=== PATIENT | female | born 1950 | race Caucasian/White ===

== ENCOUNTER → 2018-01-11 08:55 | Outpatient (CLI) | payer MEDICARE, OTHER, SELFPAY ==
--- NOTE | 2018-01-11 09:01 | BI_ITS ---
MAMMOGRAPHY - BILATERAL SCREENING REASON FOR EXAM: Female, 67 years old. Routine annual screening examination. PERTINENT HISTORY: Non-contributory. TECHNIQUE: Digital bilateral breast anjali (3D mammographic acquisition) in the CC and MLO projections. 2-D mediolateral oblique (MLO) and craniocaudad (CC) views of both breasts were obtained. CAD: Full Field Digital Mammography with Computer Added Detection was performed. COMPARISON: Comparison is made with prior study dated January 10, 2017 and December 17, 2015. FINDINGS: Breast Composition: The breasts are heterogeneously dense, which may obscure small masses. There are no dominant masses or suspicious calcifications. Stable benign-appearing bilateral axillary lymph nodes. No other significant abnormalities are identified. There has been no significant change since the prior study. BI/SCREENING MAMM (CAD), BILAT IMPRESSION: Stable bilateral screening mammogram. Yearly follow-up mammogram recommended. (A) ASSESSMENT CATEGORY: BIRADS Category 2: Benign. A letter regarding these results will be sent to the patient by the facility within 30 days. Approximately 10% of breast cancers are not detected by mammography. A normal mammogram should not delay biopsy of a clinically suspicious abnormality. [id number] Electronically Signed: Christophe Young MD at 13:51 EDT Tel [phone], Service support ,
== END ==
PROVIDERS: Family Provider Internal Medicine; PCP Internal Medicine; Visit Provider Internal Medicine
DX: Z12.31 Encounter for screening mammogram for malignant neoplasm of breast (principal)
CPT/HCPCS: 77063; 77067

== ENCOUNTER → 2018-04-12 12:52 | Outpatient (CLI) | payer MEDICARE, OTHER, SELFPAY ==
[2018-04-12 13:20] LABS: Hematocrit 37.6 % (37-47); Hemoglobin 12.6 g/dl (12.0-15.0); Mean Corp Hgb Conc 33.5 g/gl (32-36); Mean Corpuscular Hgb 29.2 pg (27.0-32.0); Platelet Count 307 K/mm3 (150-450); RBC Distribution Width CV 12.7 % (11.6-14.6); RBC Distribution Width SD 41.1 fl (35.1-43.9); Red Blood Count 4.32 M/mm3 (4.2-5.4); White Blood Count 4.7 K/mm3 (4.4-11.0)
[2018-04-12 13:22] LABS: Scan Indicated on CBC? Y/N NO
[2018-04-12 13:43] LABS: ALB/GLOB Ratio 1.1 RATIO (0.9-2.4); AST(SGOT) 24 U/L (15-37); Alanine Aminotransfer ALT/SGPT 34 U/L (13-56); Albumin, Serum 3.9 g/dL (3.2-5.0); Alkaline Phosphatase 90 U/L (45-117); Anion Gap 6 (5-15); BUN 14 mg/dL (7-18); BUN/Creat Ratio 17.7 RATIO (10-20); Calcium,Total 8.8 mg/dL (8.5-10.1); Chloride 107 mmol/L (98-107); Creatinine, Serum 0.79 mg/dL (0.55-1.02); EST Glomerular Filtration Rate 77 mL/min (>60); Est Glom Filt Rate - Afr Amer 93 mL/min (>60); Globulin 3.7 g/dL (2.2-4.2); Glucose 88 mg/dL (74-106); Potassium 4.3 mmol/L (3.5-5.1); Protein, Total 7.6 g/dL (6.4-8.2); Sodium Level 141 mmol/L (136-145)
== END ==
PROVIDERS: Family Provider Internal Medicine; PCP Internal Medicine; Referring Provider Internal Medicine; Visit Provider Internal Medicine
DX: R07.89 Other chest pain (principal)
CPT/HCPCS: 80053; 84484; 85027

== ENCOUNTER 2018-04-13 07:05 | Day surgery (SDC) | payer MEDICARE, OTHER, SELFPAY ==
--- NOTE | 2018-04-12 15:55 | RAD_ITS ---
STUDY: X-RAY CHEST REASON FOR EXAM: Female, 67 years old. Chest pressure. TECHNIQUE: PA and lateral views of the chest. COMPARISON: None. FINDINGS: There is no focal consolidation. Normal size heart. Normal mediastinum and kelvin. Normal visualized pulmonary arteries. Normal visualized aortic arch and descending thoracic aorta. Normal visualized thoracic spine. Normal visualized ribs, clavicles, and shoulders. There is no demonstrated abnormality of the visualized soft tissue structures of the upper abdomen. RAD/Chest PA and Lateral IMPRESSION: No acute cardiopulmonary process. Electronically Signed: Emilia Porter MD at 20:56 EDT Tel , Service support ,
[2018-04-13 06:41] VITALS: BMI 32.5
--- NOTE | 2018-04-13 08:14 | CL.D_ITS ---
Patient Name: NICOLE MILLER Study Date: 04/13/2018 Performing: Haresh Saldana MD Ht: 62.99 inches 160 cm : 1950 Wt: 182.98 lbs 83 kg Age: 67 Gender: female BSA: 1.86 PROCEDURE(S) PERFORMED KG22-ACT/COR/LV CLINICAL PROFILE AND INDICATIONS Indications: Suspected CAD Heart Failure: None Stress/Imaging Stress Test w/SPECT MPI: Yes Result: NegativeStress Test with SPECT MPI: Negative CAD Presentations: Symptom unlikely to be ischemic. CONCLUSIONS Normal coronary arteries Normal LV size, wall motion,and systolic function RECOMMENDATIONS Medical therapy DESCRIPTION OF PROCEDURE The patient arrived to the procedure lab. The risks and benefits of the procedure as well as a full d escription of our services here and current unavailability of surgical backup were fully explained to the patient and/or their significant other prior to the catheterization. The Timeout was completed, verifying the correct patient and procedure. The patient's procedural site was prepped and draped in the usual fashion. Local anesthetic was given subcutaneously to right radial region with Lidocaine 2% . Using a modified Seldinger technique, arterial access was obtained via the right radial artery, a 6 Fr sheath was inserted. Right Coronary Artery selective angiography was then performed in multiple v iews using a 5 Fr. 4.0 [place] catheter. Left Coronary Artery selective angiography was performed in mu ltiple views using a 5 Fr. 4.0 [place] catheter. Left Ventriculography was performed in GUZMÁN projection using a 5 Fr. [place] catheter. LV to AO pullback pressures were then recorded.The arterial sheath was pulled and a TR Band was applied for hemostasis CORONARY ANGIOGRAPHY DOMINANCE: Right Dominant LEFT HEART ASSESSMENT Left Ventricular Ejection Fraction: by LV Gram 60 % Normal LV wall motion Normal Left Ventricular systolic function Normal Left Ventricular systolic function LEFT MAIN: Angiographically normal LEFT ANTERIOR DECENDING ARTERY: Angiographically normal CIRCUMFLEX ARTERY: Angiographically normal RIGHT CORONARY ARTERY: Angiographically normal COMPLICATIONS No Complications PROCEDURE MEDICATIONS Fentanyl 50 mcg IV Versed 1 mg IV Oxygen: 2 L/min via nasal cannula Heparin diluted in 23cc Heparinized saline. Patient given 10cc IA of this solution. 04/13/2018 07:53: 36 Verapamil 2.5mg, Ntg 100mcgs, 2000 units of Heparin diluted in 23cc Heparinized saline. Patient give n 10cc IA of this solution. 04/13/2018 07:53:36 SUMMARY OF HEMODYNAMIC DATA Time AIR REST ECG 07:22:39 AO 127/73 (97) SA 07:55:36 LV 137/5, 21 08:05:00 LV 141/3, 20 08:05:08 LV 143/8, 21 08:06:19 LVp 146/8, 21 08:06:22 AOp 148/72 (106) 08:06:27 Signed By Haresh Saldana MD On 04/13/2018 08:13:50 Haresh Saldana MD
== END 2018-04-13 11:55 | disposition home or self-care (01) ==
LOC: CLSP 07:06
PROVIDERS: Family Provider Internal Medicine; PCP Internal Medicine; Referring Provider Internal Medicine Cardiovascular Disease; Visit Provider Internal Medicine Cardiovascular Disease
DX: R07.9 Chest pain, unspecified (principal); R06.09 Other forms of dyspnea; I34.0 Nonrheumatic mitral (valve) insufficiency; E03.9 Hypothyroidism, unspecified; E78.5 Hyperlipidemia, unspecified; R01.1 Cardiac murmur, unspecified; Z79.82 Long term (current) use of aspirin; Z79.899 Other long term (current) drug therapy
CPT/HCPCS: 71046; 93458; 99152; 99153; J7040; Q9967; C1769; C1894

== ENCOUNTER → 2018-09-21 06:49 | Outpatient (CLI) | payer MEDICARE, OTHER, SELFPAY ==
--- NOTE | 2018-09-21 07:53 | CT_ITS ---
STUDY: CT CHEST WITH CONTRAST REASON FOR EXAM: Female, 67 years old. Upper chest tightness x2 years RADIATION DOSAGE (If Supplied By Facility): CTDIvol = ( 11.93 ) mGy, DLP = ( 528.96 ) mGycm TECHNIQUE: Transaxial imaging was performed following intravenous administration of 100 IV Isovue 300. Individualized dose optimization techniques were used for this CT. COMPARISON: None. FINDINGS: There is a tiny calcified granuloma of the posterior right lower lobe. There is no demonstrated pleural abnormality. Normal heart and pericardium. Normal mediastinum. Normal hilar regions. Normal enhanced pulmonary arteries. There are calcified plaques of the aortic arch. There is mild diffuse endplate spondylosis of the thoracic spine. There is a solitary calcified gallstone. CT/Chest WITH Contrast IMPRESSION: 1. Tiny calcified granuloma of the posterior right lower lobe. 2. Calcified plaques of the aortic arch. 3. Mild diffuse endplate spondylosis of the thoracic spine. 4. Solitary calcified gallstone. Electronically Signed: Junior Bernabe MD at 17:13 EDT , Service support ,
--- NOTE | 2018-09-21 11:35 | PFT ---
INTRODUCTION: The patient is a 67-year-old female that presents for pulmonary function studies secondary to a diagnosis of chest tightness. Respiratory therapy reports good patient effort. Bronchodilators were used during testing. INTERPRETATION: Forced expiration spirometry demonstrates no evidence of a large airways obstructive ventilatory defect. There was no significant response to aerosolized bronchodilators, based upon strict ATS criteria. Spirograms are of good quality and plateau normally. The respiratory flow volume loop appears normal. Body plethysmography was performed and reveals lung volumes to be within normal limits. Diffusing capacity by single breath CO is also within normal limits at 84% of predicted. IMPRESSION: Normal pulmonary function studies.
== END ==
PROVIDERS: Family Provider Internal Medicine; PCP Internal Medicine; Referring Provider Internal Medicine; Visit Provider Internal Medicine
DX: R07.9 Chest pain, unspecified (principal); R06.2 Wheezing
CPT/HCPCS: 71260; 94060; 94726; 94729; Q9967

== ENCOUNTER → 2018-09-26 07:58 | Outpatient (CLI) | payer MEDICARE, OTHER, SELFPAY ==
--- NOTE | 2018-09-26 15:22 | BRONCHALL ---
Bronchoprovocation Challenge - Bronchoprovocation Challenge Bronchoprovocation Challenge: BRONCHOPROVOCATION STUDY INTERPRETATION Brief HPI: Patient is a 67 year old female, currently under the care of Dr. Crowell, who presents to [facility] for a bronchoprovocation study secondary to diagnosis of chest pain. Respiratory therapist reports good effort and reproducible results. Interpretation: Initial spirometry showed no large airways obstructive ventilatory defect. The patient was then given increasingly concentrated doses of methacholine in a stepwise fashion, using a modified ATS protocol. The patient?s maximum reduction in FEV1 was 7 percent predicted. Impression: Negative Bronchoprovocation study. This is NOT consistent with the diagnosis of asthma.
== END ==
PROVIDERS: Family Provider Internal Medicine; PCP Internal Medicine; Referring Provider Internal Medicine; Visit Provider Internal Medicine
DX: R07.9 Chest pain, unspecified (principal); R06.2 Wheezing
CPT/HCPCS: 94070; 95070; J3490; J7674

== ENCOUNTER → 2019-02-07 12:46 | Outpatient (CLI) | payer MEDICARE, OTHER, SELFPAY ==
[2018-10-30 12:53] VITALS: BMI 32.5
--- NOTE | 2019-02-07 12:48 | BI_ITS ---
MAMMOGRAPHY - BILATERAL SCREENING REASON FOR EXAM: Female, 68 years old. Routine annual screening examination. PERTINENT HISTORY: Non-contributory. TECHNIQUE: Digital bilateral breast zoltan (3D mammographic acquisition) in the CC and MLO projections. 2-D mediolateral oblique (MLO) and craniocaudad (CC) views of both breasts were obtained. CAD: Full Field Digital Mammography with Computer Added Detection was performed. COMPARISON: Comparison is made with prior examination dated January 11, 2018 and January 10, 2017. FINDINGS: Breast Composition: The breasts are heterogeneously dense, which may obscure small masses. There are no dominant masses or suspicious calcifications. No other significant abnormalities are identified. There has been no significant change since the prior study. BI/SCREEN MAMM (CAD) W/ZOLTAN BILAT IMPRESSION: Stable bilateral screening mammogram. Yearly follow-up mammogram recommended. (A) ASSESSMENT CATEGORY: BIRADS Category 1: Negative. A letter regarding these results will be sent to the patient by the facility within 30 days. Approximately 10% of breast cancers are not detected by mammography. A normal mammogram should not delay biopsy of a clinically suspicious abnormality. [id number] Electronically Signed: Christophe Young, at 13:47 EDT , Service support ,
== END ==
PROVIDERS: Family Provider Internal Medicine; PCP Internal Medicine; Referring Provider Internal Medicine; Visit Provider Internal Medicine
DX: Z12.31 Encounter for screening mammogram for malignant neoplasm of breast (principal)
CPT/HCPCS: 77063; 77067

== ENCOUNTER → 2019-02-28 12:52 | Outpatient (CLI) | payer MEDICARE, OTHER, SELFPAY ==
[2018-10-30 12:53] VITALS: BMI 32.5
--- NOTE | 2019-02-28 12:54 | ECHOD_ITS ---
Reason For Study: Murmur Procedure This was a 2D Doppler, Color Flow transthoracic echocardiogram. Exam performed in department. Left Ventricle Normal LV size. The estimated ejection fraction is 55 %. No evidence for diastolic dysfunction. No regional wall motion abnormalities noted. Right Ventricle Normal RV size. Normal systolic function. Atria Normal left atrium. Normal right atrium. No doppler evidence for ASD. Mitral Valve There is no mitral valve stenosis. Trivial mitral valve insufficiency. Tricuspid Valve There is no tricuspid stenosis. Trivial tricuspid valve insufficiency. Aortic Valve Mild diffuse aortic valve thickening. Mild aortic stenosis. Mild (1+) aortic valve insufficiency. Pulmonic Valve There is no pulmonic valvular stenosis. No pulmonic valve insufficiency. Great Vessels Normal aortic root. Pericardium/Pleural No pericardial effusion. MMode/2D Measurements & Calculations LVIDd: 4.1 cm IVSd: 1.2 cm LVOT diam: 2.0 cm LVIDs: 2.2 cm LVPWd: 0.91 cm LVOT area: 3.2 cm2 FS: 46.3 % LAV(MOD-bp): 61.8 ml LA A4 area: 20.8 cm2 RA A4 area: 13.4 cm2 LAV(MOD-bp) Indexed: 33.8 ml/m2 LAV(MOD-sp2): 59.0 ml LAV(MOD-sp4): 63.2 ml Time Measurements MV dec time: 0.30 sec Doppler Measurements & Calculations MV E max adair: 91.1 cm/sec Lat Peak E' Adair: 8.3 cm/sec Med Peak E' Adair: 6.6 cm/sec MV A max adair: 124.0 cm/sec E/E' lat: 10.9 E/E' med: 13.7 MV E/A: 0.73 MV V2 max: 114.7 cm/sec MV P1/2t max adair: 86.1 cm/sec Ao V2 max: 233.3 cm/sec MV max P.3 mmHg MV P1/2t: 88.0 msec Ao max P.8 mmHg MV V2 mean: 59.7 cm/sec MV dec slope: 286.5 cm/sec2 Ao V2 mean: 149.0 cm/sec MV mean P.7 mmHg MVA(P1/2t): 2.5 cm2 Ao mean P.5 mmHg MV V2 VTI: 34.4 cm Ao V2 VTI: 53.7 cm MVA(VTI): 2.7 cm2 KAYLIE(I,D): 1.7 cm2 KAYLIE(V,D): 1.7 cm2 AI max adair: 373.0 cm/sec LV V1 max: 121.3 cm/sec MR max adair: 458.4 cm/sec AI max P.7 mmHg LV V1 max P.9 mmHg MR max P.1 mmHg LV V1 mean P.4 mmHg AI dec slope: 240.4 cm/sec2 LV V1 mean: 86.4 cm/sec AI P1/2t: 454.5 msec LV V1 VTI: 28.8 cm SV(LVOT): 91.6 ml PA V2 max: 109.8 cm/sec Interpretation Summary The estimated ejection fraction is 55 %. No evidence for diastolic dysfunction. Trivial mitral valve insufficiency. Trivial tricuspid valve insufficiency. Mild aortic stenosis. Mild (1+) aortic valve insufficiency. Ordering Physician: Maura Crowell Referring Physician: Maura Crowell Performed By: Joseph Mckeon RCS
== END ==
PROVIDERS: Family Provider Internal Medicine; PCP Internal Medicine; Referring Provider Internal Medicine; Visit Provider Internal Medicine
DX: I34.0 Nonrheumatic mitral (valve) insufficiency (principal)
CPT/HCPCS: 93306

== ENCOUNTER → 2019-03-05 09:35 | Outpatient (CLI) | payer MEDICARE, OTHER, SELFPAY ==
[2018-10-30 12:53] VITALS: BMI 32.5
--- NOTE | 2019-03-05 09:40 | BD_ITS ---
STUDY: DUAL ENERGY X-RAY ABSORPTIOMETRY / DXA REASON FOR EXAM: Female, 68 years old. The patient is postmenopausal. Loss of height. TECHNIQUE: Bone Mineral Density (BMD) measurements of lumbar spine and left hip were obtained. COMPARISON: Comparison is made with prior study dated February 28, 2017. FINDINGS: Lumbar Spine (L1-L4): g/cm2 (1.037) / T-score (-1.2) / Z-score (0.5) Findings are suggestive of osteopenia with a low fracture risk. Left Femur Total: g/cm2 (0.880) / T-score (-1.0) / Z-score (0.4) Left Femoral Neck: g/cm2 (0.830) / T-score (-1.5) / Z-score (0.2) The T-Scores on the most recent prior examination were: Lumbar Spine (L1-L4): There has been worsening of bone density since the previous examination. Left Femur Total: which represents a worsening of 3.5%. BD/Dexa Bone Density Study IMPRESSION: The patient is considered osteopenic as outlined below according to World [place] Organization (WHO) criteria with a low fracture risk. There has been worsening of bone density since the previous examination. Reference Information: The T-score is the number of standard deviations above or below the standard which is normal for young adults at their peak bone mineral density. The World Health Organization (WHO) interprets the T-scores as follows: Above -1 Normal bone density Between -1 and -2.5 Osteopenia Equal to / or below -2.5 Osteoporosis As a practical clinical guideline, osteopenia may be graded as follows: Mild -1 through -1.5 Moderate -1.6 through -2.0 Severe -2.1 through -2.4 The Z-score is the number of standard deviations above or below age-matched controls. A Z-score of less than -1.5 would be considered abnormal. References: 1. NIH Osteoporosis and Related Bone Diseases http://www.osteo.org 2. International Society for Clinical Densitometry http://www.iscd.org 3. National Osteoporosis Foundation http://www.nof.org Electronically Signed: Christophe Young, at 13:40 EDT , Service support ,
== END ==
PROVIDERS: Family Provider Internal Medicine; PCP Internal Medicine; Referring Provider Internal Medicine; Visit Provider Internal Medicine
DX: Z78.0 Asymptomatic menopausal state (principal); I34.0 Nonrheumatic mitral (valve) insufficiency
CPT/HCPCS: 77080

== ENCOUNTER → 2019-12-17 13:54 | Outpatient (CLI) | payer MEDICARE, OTHER, SELFPAY ==
[2019-12-17 13:54] VITALS: BMI 32.5
--- NOTE | 2019-12-17 14:11 | RAD_ITS ---
STUDY: X-RAY - PELVIS AND RIGHT HIP REASON FOR EXAM: Female, 68 years old. Right hip/leg pain -- NKI -- right hip replacement 2008 TECHNIQUE: 3 views of the pelvis and right hip. COMPARISON: None. FINDINGS: The patient is status post right hip arthroplasty. The hardware is intact and alignment is satisfactory. There is no acute fracture or dislocation in the pelvis or right hip. The visualized soft tissues are within normal limits RAD/HIP, UNI W/ Pelvis 2-3 Views IMPRESSION: Status post right hip arthroplasty with intact hardware in satisfactory alignment. No acute fracture or dislocation in the pelvis or right hip. Electronically Signed: Dominick Garcia, at 16:48 EDT Tel , Service support ,
--- NOTE | 2019-12-17 14:11 | RAD_ITS ---
STUDY: X-RAY - RIGHT KNEE REASON FOR EXAM: Female, 68 years old. Right medial pain TECHNIQUE: 4 view(s) of the knee. COMPARISON: None. FINDINGS: There is no evidence of fracture or dislocation. There are mild to moderate tricompartmental degenerative changes which are most pronounced in the medial compartment. There are no radiodense foreign bodies. RAD/Knee 4 or More Views IMPRESSION: No fracture or dislocation in the right knee. 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 Electronically Signed: Dominick Garcia, at 15:31 EDT Tel , Service support ,
== END ==
PROVIDERS: PCP Internal Medicine; Referring Provider Internal Medicine; Visit Provider Internal Medicine
DX: M25.551 Pain in right hip (principal); M25.561 Pain in right knee
CPT/HCPCS: 73502; 73564

== ENCOUNTER → 2020-04-01 11:22 | Outpatient (CLI) | payer MEDICARE, OTHER, SELFPAY ==
[2019-12-17 13:54] VITALS: BMI 32.5
--- NOTE | 2020-04-01 11:24 | BI_ITS ---
MAMMOGRAPHY - BILATERAL SCREENING REASON FOR EXAM: Female, 69 years old. Routine annual screening examination. PERTINENT HISTORY: Non-contributory. TECHNIQUE: Digital bilateral breast zoltan (3D mammographic acquisition) in the CC and MLO projections. 2-D mediolateral oblique (MLO) and craniocaudad (CC) views of both breasts were obtained. CAD: Full Field Digital Mammography with Computer Added Detection was performed. COMPARISON: Comparison is made with prior examination dated 02/07/2019 and 01/11/2018. FINDINGS: Breast Composition: The breasts are heterogeneously dense, which may obscure small masses. There are no dominant masses or suspicious calcifications. Stable benign appearing bilateral axillary lymph nodes. No other significant abnormalities are identified. There has been no significant change since the prior study. BI/SCREEN MAMM (CAD) W/ZOLTAN BILAT IMPRESSION: Stable bilateral screening mammogram. Yearly follow-up mammogram recommended. (A) ASSESSMENT CATEGORY: BIRADS Category 2: Benign. A letter regarding these results will be sent to the patient by the facility within 30 days. Approximately 10% of breast cancers are not detected by mammography. A normal mammogram should not delay biopsy of a clinically suspicious abnormality. [id number] Electronically Signed: Christophe Young, at 14:22 EDT , Service support ,
== END ==
PROVIDERS: PCP Internal Medicine; Referring Provider Internal Medicine; Visit Provider Internal Medicine
DX: Z12.31 Encounter for screening mammogram for malignant neoplasm of breast (principal)
CPT/HCPCS: 77063; 77067

== ENCOUNTER → 2021-02-08 10:38 | Outpatient (CLI) | payer MEDICARE, OTHER, SELFPAY | PROVIDERS: PCP Internal Medicine; Referring Provider Internal Medicine; Visit Provider Internal Medicine | DX: Z20.822 Contact with and (suspected) exposure to COVID-19 (principal) | CPT/HCPCS: 87635; U0005; U0003 ==

== ENCOUNTER → 2021-06-01 12:58 | Outpatient (CLI) | payer MEDICARE, OTHER, SELFPAY ==
--- NOTE | 2021-06-01 13:00 | BI_ITS ---
MAMMOGRAPHY - BILATERAL SCREENING REASON FOR EXAM: Female, 70 years old. Routine annual screening examination. PERTINENT HISTORY: Non-contributory. TECHNIQUE: Digital bilateral breast zoltan (3D mammographic acquisition) in the CC and MLO projections. 2-D mediolateral oblique (MLO) and craniocaudad (CC) views of both breasts were obtained. CAD: Full Field Digital Mammography with Computer Added Detection was performed. COMPARISON: Comparison is made with prior study 04/01/2020 and 02/07/2019. FINDINGS: Breast Composition: The breasts are heterogeneously dense, which may obscure small masses. There are no dominant masses or suspicious calcifications. Stable small benign appearing bilateral axillary lymph nodes. No other significant abnormalities are identified. There has been no significant change since the prior study. BI/SCRN MAMM (CAD)W/ZOLTAN BILAT IMPRESSION: Stable bilateral screening mammogram. Yearly follow-up mammogram recommended. (A) ASSESSMENT CATEGORY: BIRADS Category 2: Benign. A letter regarding these results will be sent to the patient by the facility within 30 days. Approximately 10% of breast cancers are not detected by mammography. A normal mammogram should not delay biopsy of a clinically suspicious abnormality. [id number] Electronically Signed: Christophe Young MD at 14:28 EST , Service support ,
--- NOTE | 2021-06-01 13:14 | BD_ITS ---
STUDY: DUAL ENERGY X-RAY ABSORPTIOMETRY / DXA REASON FOR EXAM: Female, 70 years old. [id number]. The patient is postmenopausal. TECHNIQUE: Bone Mineral Density (BMD) measurements of lumbar spine and left hip were obtained. COMPARISON: Comparison is made with prior study dated 03/05/2019. FINDINGS: Lumbar Spine (L1-L4): g/cm2 (0.888) / T-score (-1.4) / Z-score (0.7) Findings are suggestive of osteopenia with a low fracture risk. Left Femur Total: g/cm2 (0.833) / T-score (-0.9) / Z-score (0.7) Left Femoral Neck: g/cm2 (0.66) / T-score (-1.6) / Z-score (0.2) The T-Scores on the most recent prior examination were: Lumbar Spine (L1-L4): There has been worsening of bone density since the previous examination. Left Femur Total: which represents an improvement of 1.9%. BD/Dexa Bone Density Study IMPRESSION: The patient is considered osteopenic as outlined below according to World [place] Organization (WHO) criteria with a moderate fracture risk. There has been improvement of bone density since the previous examination. Reference Information: The T-score is the number of standard deviations above or below the standard which is normal for young adults at their peak bone mineral density. The World Health Organization (WHO) interprets the T-scores as follows: Above -1 Normal bone density Between -1 and -2.5 Osteopenia Equal to / or below -2.5 Osteoporosis As a practical clinical guideline, osteopenia may be graded as follows: Mild -1 through -1.5 Moderate -1.6 through -2.0 Severe -2.1 through -2.4 The Z-score is the number of standard deviations above or below age-matched controls. A Z-score of less than -1.5 would be considered abnormal. References: 1. NIH Osteoporosis and Related Bone Diseases www osteo.org 2. International Society for Clinical Densitometry www iscd.org 3. National Osteoporosis Foundation www nof.org Electronically Signed: Christophe Young MD at 12:55 EST , Service support ,
== END ==
PROVIDERS: PCP Internal Medicine; Referring Provider Internal Medicine; Visit Provider Internal Medicine
DX: N95.9 Unspecified menopausal and perimenopausal disorder (principal); Z12.31 Encounter for screening mammogram for malignant neoplasm of breast
CPT/HCPCS: 77063; 77067; 77080

== ENCOUNTER → 2022-05-24 | Outpatient (CLI) | payer MEDICARE, OTHER, SELFPAY ==
--- NOTE | 2022-05-24 14:53 | CT_ITS ---
STUDY: CT MAXILLOFACIAL SINUSES REASON FOR EXAM: Female, 71 years old. CHRONIC/RECURRENT SINUSITIS RADIATION DOSAGE (If Supplied By Facility): CTDIvol = ( 33.06 ) mGy, DLP = ( 788.40 ) mGycm TECHNIQUE: The patient was scanned in a multi detector CT scanner. High resolution axial imaging was performed without the administration of intravenous contrast material. Sagittal and coronal images were reconstructed. Individualized dose optimization techniques were used for this CT. COMPARISON: None. FINDINGS: FRONTAL SINUSES: Normal aeration, without mucosal inflammatory disease. ETHMOIDAL SINUSES: Normal aeration, without mucosal inflammatory disease. MAXILLARY SINUSES: Minimal mucosal thickening of the right maxillary sinus. SPHENOIDAL SINUSES: Normal aeration, without mucosal inflammatory disease. There is patency of the bilateral maxillary infundibuli with normal uncinate processes, ethmoid bullae, and hiatus semilunaris. Normal bilateral middle turbinates. Normal bilateral inferior turbinates. Normal midline nasal septum. There is patency of the bilateral nasal airways. The visualized osseous structures are normal. The visualized bilateral orbital contents are normal. CT/Sinus/Facial Bone IMPRESSION: Minimal mucosal thickening of the right maxillary sinus. Electronically Signed: Christophe Young MD at 15:38 EST ,
== END | disposition home or self-care (01) ==
LOC: CT 14:50
PROVIDERS: PCP Internal Medicine; Visit Provider Internal Medicine
DX: J32.9 Chronic sinusitis, unspecified (principal)
CPT/HCPCS: 70486

== ENCOUNTER → 2022-05-27 | Outpatient (CLI) | payer MEDICARE, OTHER, SELFPAY ==
--- NOTE | 2022-05-27 12:45 | CDU_ITS ---
Reason For Study: Carotid Stenosis Rt. Velocities/BP Lt. Velocities/BP Prox CCA 70/11 cm/sec. Prox CCA 74/18 cm/sec. Mid CCA 56/11 cm/sec. Mid CCA 69/16 cm/sec. Dist CCA 58/17 cm/sec. Dist CCA 66/19 cm/sec. Prox ICA 111/32 cm/sec. Prox ICA 44/12 cm/sec. Mid ICA 105/23 cm/sec. Mid ICA 86/26 cm/sec. Dist ICA 109/30 cm/sec. Dist ICA 141/48 cm/sec. Rt. ICA/CCA = 2.0. Lt. ICA/CCA = 2.1. Prox ECA 71/11 cm/sec. Prox ECA 48/8 cm/sec. Rt. Vert. 46/9 cm/sec. Lt. Vert. 51/13 cm/sec. Right Extracranial There is heterogeneous, irregular atherosclerotic plaque noted in the right common carotid artery. There is heterogeneous, irregular atherosclerotic plaque noted in the right internal carotid artery. There is no significant atherosclerotic plaque noted in the right external carotid artery. Antegrade flow is noted in the right vertebral artery. Left Extracranial There is heterogeneous, smooth atherosclerotic plaque noted in the left common carotid artery. There is heterogeneous, smooth atherosclerotic plaque noted in the left internal carotid artery. The left internal carotid artery is very tortuous. There is no significant atherosclerotic plaque noted in the left external carotid artery. Antegrade flow is noted in the left vertebral artery. Procedure Carotid Duplex [id number]. This is a Carotid Duplex examination using B-mode, color flow and specral Doppler. Exam performed in department. VL/Carotid Duplex Ultrasound Interpretation Summary Mild (<50%) stenosis right extracranial internal carotid. Moderate (50-69%) stenosis left extracranial internal carotid. Elevated velocit ies may be artifact due to vessel tortuosity Patent and antegrade vertebrals bilaterally. Ordering Physician: Maura Crowell Referring Physician: Maura Crowell Performed By: An Burnett, TATA, RVT
--- NOTE | 2022-05-27 12:45 | ECHOL_ITS ---
Reason For Study: AORTIC STENOSIS Procedure This was a limited 2D transthoracic echocardiogram. Exam performed in department. Left Ventricle Normal LV size. Left ventricular systolic function is normal. The estimated ejection fraction is 60 %. No regional wall motion abnormalities noted. Right Ventricle Normal RV size. Normal systolic function. Atria Normal left atrium. Normal right atrium. Mitral Valve Normal mitral valve. Tricuspid Valve Normal tricuspid valve. Aortic Valve Trisinus/trileaflet aortic valve. Mild focal aortic valve calcification. Peak aortic valve gradient 23 mmHg. Mean aortic valve gradient 12 mmHg. Mild aortic stenosis. Mild (1+) aortic valve insufficiency. Pulmonic Valve Normal pulmonic valve. Great Vessels Normal aortic root. The pulmonary artery is normal size. Normal inferior vena cava. Pericardium/Pleural No pericardial effusion. MMode/2D Measurements & Calculations LVIDd: 4.0 cm IVSd: 1.2 cm LVOT diam: 2.0 cm LVIDs: 2.4 cm LVPWd: 0.99 cm LVOT area: 3.2 cm2 RVDd: 2.9 cm FS: 40.0 % Ao root diam: 3.0 cm LAV(MOD-bp): 60.1 ml Aortic Valve Planimetry: 1.6 cm2 LAV(MOD-bp) Indexed: 33.4 ml/m2 LAV(MOD-sp2): 55.8 ml LAV(MOD-sp4): 55.5 ml LA dimension(2D): 3.9 cm LA A4 area: 18.4 cm2 RA A4 area: 10.7 cm2 Doppler Measurements & Calculations Ao V2 max: 242.4 cm/sec AI max arian: 341.7 cm/sec LV V1 max: 119.6 cm/sec Ao max P.5 mmHg AI max P.8 mmHg LV V1 max P.7 mmHg Ao V2 mean: 169.9 cm/sec AI dec slope: 234.3 cm/sec2 LV V1 mean P.5 mmHg Ao mean P.9 mmHg AI P1/2t: 427.1 msec LV V1 mean: 90.2 cm/sec Ao V2 VTI: 59.4 cm LV V1 VTI: 30.1 cm AV (velocity ratio): 0.51 KAYLIE(I,D): 1.6 cm2 KAYLIE(V,D): 1.6 cm2 SV(LVOT): 95.5 ml ECHO/Echo, Limited Study Interpretation Summary Normal LV size. Left ventricular systolic function is normal. The estimated ejection fraction is 60 %. Mild (1+) aortic valve insufficiency. Mild focal aortic valve calcification. Mean aortic valve gradient 12 mmHg. Mild aortic stenosis. Ordering Physician: Maura Crowell Referring Physician: Maura Crowell Performed By: Penelope Bone, RDCS, RVT
== END | disposition home or self-care (01) ==
LOC: CVS 12:44
PROVIDERS: PCP Internal Medicine; Referring Provider Internal Medicine; Visit Provider Internal Medicine
DX: I65.23 Occlusion and stenosis of bilateral carotid arteries (principal); I35.0 Nonrheumatic aortic (valve) stenosis
CPT/HCPCS: 93308; 93880

== ENCOUNTER → 2022-06-02 | Outpatient (CLI) | payer MEDICARE, OTHER, SELFPAY ==
--- NOTE | 2022-06-02 08:44 | BI_ITS ---
MAMMOGRAPHY - BILATERAL SCREENING REASON FOR EXAM: Female, 71 years old. Routine annual screening examination. PERTINENT HISTORY: Non-contributory. TECHNIQUE: Digital bilateral breast zoltan (3D mammographic acquisition) in the CC and MLO projections. 2-D mediolateral oblique (MLO) and craniocaudad (CC) views of both breasts were obtained. CAD: Full Field Digital Mammography with Computer Added Detection was performed. COMPARISON: Comparison is made with prior study dated 06/01/2021 and 04/01/2020. FINDINGS: Breast Composition: The breasts are heterogeneously dense, which may obscure small masses. There are no dominant masses or suspicious calcifications. Stable small benign-appearing bilateral axillary. No other significant abnormalities are identified. There has been no significant change since the prior study. BI/SCRN MAMM (CAD)W/ZOLTAN BILAT IMPRESSION: Stable bilateral screening mammogram. Yearly follow-up mammogram recommended. (A) ASSESSMENT CATEGORY: BIRADS Category 2: Benign. A letter regarding these results will be sent to the patient by the facility within 30 days. Approximately 10% of breast cancers are not detected by mammography. A normal mammogram should not delay biopsy of a clinically suspicious abnormality. [id number] Electronically Signed: Christophe Young MD at 10:09 EST ,
== END | disposition home or self-care (01) ==
LOC: OPBI 08:40
PROVIDERS: PCP Internal Medicine; Referring Provider Internal Medicine; Visit Provider Internal Medicine
DX: Z12.31 Encounter for screening mammogram for malignant neoplasm of breast (principal)
CPT/HCPCS: 77063; 77067

== ENCOUNTER 2022-11-29 14:30 | Outpatient (RCR) | payer MEDICARE, OTHER, SELFPAY ==
--- NOTE | 2022-11-09 10:56 | HP.PTEVAL_ITS ---
Patient's Visit Information NICOLE MILLER is a 71 year old F referred to Physical Therapy by Dr. Maura Crowell MD with a diagnosis of R hip flexor pain. Pt. has a history of R RUDOLPH. Date of Evaluation: 11/03/22 Physical Therapist: Sanya Scott DPT - Visit Plan Frequency: 2x /Week Duration: 4 Weeks Plan: Start with manual DFM to psoas and TFL on R side. Add in gentle patient directed IT band and hip flexor stretching. Add in R glute medius strengthening as well. Consider prone hip PA mobs (gentle). Caution of previous R RUDOLPH, ~ 14 years ago. - Subjective Pt. is here today for her initial evaluation with R greater trochanter bursitis and R hip flexor pain. Pt. has a history of R RUDOLPH. Pt. had a R RUDOLPH ~14 year ago. She reports previously being inactive, but is now being more active and has started to have some symptoms. Pt. denies N/T, no issues with sleeping. Pt. has some pain at lateral hip with walking and gardening. She reports is not waking her up. Pt. has not had any recent xrays. Pt. SLR does have increased R anterior hip pain. pt. is hopeful to reduce symptoms in order to get back to all piliates and recreational walking without issues. R lateral hip pain, started ~1 month ago, but anterior hip pain was more ~10-12 years since this started. - Pain R anterior hip Pain Intensity (Out of 10): 0 Pain Intensity Range: 0, 3 R greater trochanter Pain Intensity (Out of 10): 7 Pain Intensity Range: 3, 7 - Objective POSTURE: Pt. has normal posture in sitting and standing. PALPATION: Pt. is tender along hip flexor and rectus femoris. She also has some tenderness along piriformis as well. Pt. has pain at greater trochanter as well. NEURO: Normal sensation and and normal DTR of BLEs. Pt. is able rise on heels and toes without issues. ROM: Pt. has slight tightness in her R HS, R piriformis and R IT band. She is also tight in her rectus femoris and psoas. MMT: Pt. has good strength throughout BLEs. Slight weakness 5-/5 hip flexion and hip abd. Core strength- fair. GAIT: pt. has fairly normal gait pattern. No major antalgic pattern noted. - Special Tests R Hip Trendelenberg - Glut Medius: Negative R Hip Jean - IT Band: Positive - Goals Goal 1:: LTG: Pt. to be I with HEP. Goal Time Frame: 4-6 Weeks Goal 2:: STG: Pt. to have increased R hip flexor length, noted by negative austin test. Goal Time Frame: 2-4 Weeks Goal 3:: STG: pt. to have proper IT band length as noted by negative obers test. Goal Time Frame: 2-4 Weeks Goal 4:: LTG: pt. to complete all palliates without increase in R hip pain. Goal Time Frame: 4-6 Weeks Goal 5:: LTG: pt. to have increased glute med strength to 5/5 throughout. Goal Time Frame: 4-6 Weeks - Rehabilitation Potential Physical Therapy Diagnosis: Pt. has signs and symptoms consistent with R hip flexor pain. Pt. has a history of R RUDOLPH and we need to be caution with end range stretching. I want to progress IT band stretching, hip flexor stretching, and manual hip flexor work in order to progress back to all recreational activities without limitations. Rehabilitation Potential: Excellent - Anticipated Interventions Patient/Client Instruction: Educate patient on: Condition, Plan of Care, Risk Factors, Benefits of Fitness Program For the Purpose of:: To foster healthy habits, To improve decision making, To facilitate caregiver knowledge, To improve self management, To prevent re- injury, To improve ability to perform tasks related to life management Therapeutic Exercise to Include: Strength training, Power training, Flexibilty training, Gait and locomotor training, Active ROM For the Purpose of:: To decrease pain, To increase ROM, To improve nutrient delivery to tissue, To increase oxygenation perfusion, To improve muscle performance and motor function, To improve ability to perform ADL's, To increase tolerance to activity/condition/position Manual Therapy Techniques to Include: Mobilization For the Purpose of:: To decrease pain, To increase ROM, To improve nutrient delivery to tissue Ultrasound (thermal/non thermal): Yes For the Purpose of:: To decrease pain, To increase ROM, To improve nutrient delivery to tissue Thank you for the opportunity to evaluate your patient. For Medicare and Medicare HMO plans, please review the plan of care and approve it. It will need to be FAXED BACK to us at [phone] for Medicare purposes. For Medicare only, by signing this I certify the plan of care. Please let me know if there are questions or concerns regarding this plan of care. Physician Signature: Date:
--- NOTE | 2022-11-29 16:53 | HP.PTDCSUM ---
It has been my pleasure to treat NICOLE MILLER referred by Dr. Maura Crowell MD, with the diagnosis of R hip flexor pain. Pt. has a history of R RUDOLPH for a total of 5 visit(s). Discharge Date: 11/29/22 Please see the following information for a summary of their discharge status. Subjective: Pt. reports overall doing well. Pt. pleased. Pt. has no more hip bursitis, but is still having some issues with SLR and with SLR stabilized sit ups. R anterior hip Pain Intensity (Out of 10): 0 R greater trochanter Pain Intensity (Out of 10): 0 % Improvement: 80 Objective/Function: PT. has good ROM of her R hip without increase in symptoms. Pt has some tightness with austin stretching of her R hip, but reduced pain after stretching. She has some tenderness to firm palpation of quad and hip flexor as well. She does have some pain with SLR on R side as well. She also has some pain with bracing her legs to assist with eccentric sit ups. At this point in time, I believe she needs to slowly increase tension/resistance applied to her R hip flexor group. Pt. consents. I would continue to stretch her hip flexor and rectus femoris as well. Pt. to work on these activities I at this point in time. Goal 1:: LTG: Pt. to be I with HEP. Goal Progress: Goal Met Goal 2:: STG: Pt. to have increased R hip flexor length, noted by negative austin test. Goal Progress: Goal Met Goal 3:: STG: pt. to have proper IT band length as noted by negative obers test. Goal Progress: Goal Met Goal 4:: LTG: pt. to complete all palliates without increase in R hip pain. Goal Progress: Progressing Goal 5:: LTG: pt. to have increased glute med strength to 5/5 throughout. Goal Progress: Progressing Plan: Pt. to be DC from PT to HEP at this point in time. Discharge Comments: Pt. was treated with manual and strengthening. She is doing better with her hip bursitis. She has good exercises to work on hip flexor strengthening with progressive tension to reduce pain with SLR and with her palates workouts. pt. to be DC from PT at this point in time. If there are questions or concerns regarding this patient's physical therapy, please feel free to call me at [phone]. Thank you for the referral of this patient. Sincerely, Sanya Scott, ELAINET Balance/Gait/Functional tests - Balance/Special Test Scores Lower Extremity Functional Score: 72
== END 2022-11-29 19:00 | disposition home or self-care (01) ==
LOC: PT 14:30
PROVIDERS: PCP Internal Medicine; Referring Provider Internal Medicine; Visit Provider Internal Medicine
DX: M25.551 Pain in right hip (principal)
CPT/HCPCS: 97110; 97140; 97161; 97164

== ENCOUNTER → 2023-04-05 | Outpatient (CLI) | payer MEDICARE, OTHER, SELFPAY ==
[2023-04-05 13:24] LABS: Vitamin D,25 Hydroxy 66.8 ng/mL
[2023-04-05 13:53] LABS: ALB/GLOB Ratio 1.1 RATIO (0.9-2.4); AST(SGOT) 23 U/L (15-37); Alanine Aminotransfer ALT/SGPT 33 U/L (13-56); Albumin, Serum 3.8 g/dL (3.2-5.0); Alkaline Phosphatase 71 U/L (45-117); Anion Gap 5 (5-15); BUN 17 mg/dL (7-18); BUN/Creat Ratio 21.4 RATIO (10-20); Calcium,Total 9.1 mg/dL (8.5-10.1); Chloride 108 mmol/L (98-107); Cholesterol 205 mg/dL (200); EST Glomerular Filtration Rate 75 mL/min (>60); Est Glom Filt Rate - Afr Amer 91 mL/min (>60); Globulin 3.5 g/dL (2.2-4.2); Glucose 87 mg/dL (74-106); High Density Lipoprotein 101 mg/dL; Potassium 4.2 mmol/L (3.5-5.1); Protein, Total 7.3 g/dL (6.4-8.2); Sodium Level 140 mmol/L (136-145); T4 Free Direct 1.04 ng/dL (0.76-1.46); Thyroid Stim Hormone (TSH) 1.67 uIU/mL (0.358-3.74); Triglycerides 102 mg/dL; Very Low Density Lipoprotein 20 mg/dL (5-40)
== END | disposition home or self-care (01) ==
LOC: MFPLAB 10:36
PROVIDERS: PCP Family Medicine; Visit Provider Family Medicine
DX: M85.80 Other specified disorders of bone density and structure, unspecified site (principal); E03.9 Hypothyroidism, unspecified; E78.5 Hyperlipidemia, unspecified
CPT/HCPCS: 36415; 80053; 80061; 82306; 84439; 84443

== ENCOUNTER → 2023-12-22 | Outpatient (CLI) | payer MEDICARE, OTHER, SELFPAY ==
[2023-12-22 17:34] LABS: Absolute Lymphocyte Count 1.53 X10^3/uL (0.83-4.51); Absolute Neutrophil Count 5.2 X10^3/uL (2.0-7.7); Basophil% 1.3 % (0-1); Eosinophil# 0.15 X10^3/uL; Hemoglobin 12.3 g/dL (12.0-15.0); Lymphocyte # 1.53 X10^3/ul (0.83-4.51); Lymphocyte % 20.5 % (19-41); Mean Corp Hgb Conc 33.2 g/dL (32-36); Mean Corpuscular Hgb 29.1 pg (27.0-32.0); Mean Corpuscular Volume 87.5 fL (81-99); Mean Platelet Vol. 12.1 fl (6.2-12.0); Monocyte# 0.51 X10^3/uL; Monocyte% 6.8 % (0-10); NRBC Flagged by Analyzer 0 % (0-5); Neutrophil # 5.15 X10^3/uL (2.7-7.7); Neutrophil % 69.1 % (47-70); Platelet Count 325 K/mm3 (150-450); RBC Distribution Width CV 13.2 % (11.6-14.6); RBC Distribution Width SD 42.5 fl (35.1-43.9); Red Blood Count 4.23 M/mm3 (4.2-5.4); White Blood Count 7.5 K/mm3 (4.4-11.0)
[2023-12-22 17:52] LABS: Vitamin D,25 Hydroxy 83.4 ng/mL
[2023-12-22 18:06] LABS: AST(SGOT) 25 U/L (15-37); Alanine Aminotransfer ALT/SGPT 28 U/L (13-56); Albumin, Serum 3.7 g/dL (3.2-5.0); Alkaline Phosphatase 87 U/L (45-117); Anion Gap 6 (5-15); BUN 22 mg/dL (7-18); BUN/Creat Ratio 20.6 RATIO (10-20); Calcium,Total 9.7 mg/dL (8.5-10.1); Chloride 104 mmol/L (98-107); Cholesterol 174 mg/dL (200); Creatinine, Serum 1.07 mg/dL (0.55-1.02); EST Glomerular Filtration Rate 53 mL/min (>60); Est Glom Filt Rate - Afr Amer 65 mL/min (>60); Globulin 3.8 g/dL (2.2-4.2); Glucose 103 mg/dL (74-106); High Density Lipoprotein 96 mg/dL; Potassium 4.3 mmol/L (3.5-5.1); Protein, Total 7.5 g/dL (6.4-8.2); Sodium Level 135 mmol/L (136-145); T4 Free Direct 1.08 ng/dL (0.76-1.46); Triglycerides 49 mg/dL; Very Low Density Lipoprotein 10 mg/dL (5-40)
== END | disposition home or self-care (01) ==
LOC: MFPLAB 14:16
PROVIDERS: PCP Family Medicine; Visit Provider Family Medicine
DX: R01.1 Cardiac murmur, unspecified (principal); M85.80 Other specified disorders of bone density and structure, unspecified site; M25.9 Joint disorder, unspecified; E78.5 Hyperlipidemia, unspecified; E03.9 Hypothyroidism, unspecified; N39.0 Urinary tract infection, site not specified
CPT/HCPCS: 36415; 80053; 80061; 82306; 84439; 84443; 85025; 86140

== ENCOUNTER → 2023-12-28 | Outpatient (CLI) | payer MEDICARE, OTHER, SELFPAY ==
[2023-12-28 11:17] LABS: Rheumatoid Factor < 10.0 IU/mL (<15)
[2023-12-29 12:09] LABS: ANTINUCLEAR ANTIBODIES DIRECT Negative (Negative)
== END | disposition home or self-care (01) ==
LOC: MFPLAB 08:15
PROVIDERS: PCP Family Medicine; Visit Provider Family Medicine
DX: R79.82 Elevated C-reactive protein (CRP) (principal)
CPT/HCPCS: 36415; 86038; 86431

== ENCOUNTER → 2024-04-23 | Outpatient (CLI) | payer MEDICARE, OTHER, SELFPAY ==
[2024-04-23 10:57] LABS: Cholesterol 256 mg/dL (200); High Density Lipoprotein 93 mg/dL; Triglycerides 75 mg/dL; Very Low Density Lipoprotein 15 mg/dL (5-40)
== END | disposition home or self-care (01) ==
LOC: MFPLAB 08:40
PROVIDERS: PCP Family Medicine; Visit Provider Family Medicine
DX: E03.9 Hypothyroidism, unspecified (principal); E78.5 Hyperlipidemia, unspecified
CPT/HCPCS: 36415; 80061; 84443

== ENCOUNTER → 2024-04-29 | Outpatient (CLI) | payer MEDICARE, OTHER, SELFPAY ==
--- NOTE | 2024-04-29 14:17 | BI_ITS ---
MAMMOGRAPHY - BILATERAL SCREENING REASON FOR EXAM: Female, 73 years old. Routine annual screening examination. PERTINENT HISTORY: Non-contributory. History of past breast aspiration. TECHNIQUE: Digital bilateral breast zoltan (3D mammographic acquisition) in the CC and MLO projections. 2-D mediolateral oblique (MLO) and craniocaudad (CC) views of both breasts were obtained. CAD: Full Field Digital Mammography with Computer Added Detection was performed. COMPARISON: Comparison is made with prior study dated June 02, 2022 and June 01, 2021. FINDINGS: Breast Composition: The breasts are heterogeneously dense, which may obscure small masses. There are no dominant masses or suspicious calcifications. Stable bilateral fat containing axillary lymph nodes. No other significant abnormalities are identified. There has been no significant change since the prior study. BI/SCRN MAMM (CAD)W/ZOLTAN BILAT IMPRESSION: Stable bilateral screening mammogram. Yearly follow-up mammogram recommended. (A) ASSESSMENT CATEGORY: BIRADS Category 2: Benign. A letter regarding these results will be sent to the patient by the facility within 30 days. Approximately 10% of breast cancers are not detected by mammography. A normal mammogram should not delay biopsy of a clinically suspicious abnormality. [id number] Electronically Signed: Christophe Young MD at 14:57 EST ,
== END | disposition home or self-care (01) ==
PROVIDERS: PCP Family Medicine
DX: Z12.31 Encounter for screening mammogram for malignant neoplasm of breast (principal)
CPT/HCPCS: 77063; 77067

== ENCOUNTER → 2024-10-15 | Outpatient (CLI) | payer MEDICARE, OTHER, SELFPAY | END | disposition home or self-care (01) | LOC: MFPLAB 14:50 | PROVIDERS: PCP Family Medicine; Referring Provider Family Medicine; Visit Provider Family Medicine | DX: E03.9 Hypothyroidism, unspecified (principal) | CPT/HCPCS: 36415; 84439; 84443 ==

== ENCOUNTER 2025-05-07 14:42 | Outpatient (CLI) | payer MEDICARE, OTHER, SELFPAY | END 2025-05-07 23:59 | disposition home or self-care (01) | LOC: MFPLAB 14:42 | PROVIDERS: PCP Family Medicine; Visit Provider Nurse Practitioner Family | DX: E03.9 Hypothyroidism, unspecified (principal); Z13.1 Encounter for screening for diabetes mellitus | CPT/HCPCS: 36415; 83036; 84443 ==

== ENCOUNTER → 2025-05-13 | Outpatient (CLI) | payer MEDICARE, OTHER, SELFPAY ==
--- NOTE | 2025-05-13 16:15 | BI_ITS ---
EXAM: SCRN MAMM (CAD)W/ZOLTAN BILAT DATE: 05/13/2025 CLINICAL HISTORY: F, Age 74 y/o , ANNUAL No family history. Prior bilateral breast aspirations. TECHNIQUE: Procedure Code: [id number] Modality: MG Procedure: SCRN MAMM (CAD)W/ZOLTAN BILAT COMPARISON: Prior exam(s) dated April 29, 2024.. FINDINGS: TISSUE DENSITY: The breasts are heterogeneously dense, which may obscure small masses. Bilateral Breast Mammographic Findings: No significant masses, calcifications or other abnormalities are identified. Stable small benign-appearing bilateral axillary lymph nodes. No suspicious masses, areas of developing architectural distortion, or suspicious calcifications. There has been no significant interval change. BI/SCRN MAMM (CAD)W/ZOLTAN BILAT IMPRESSION: Stable bilateral screening mammogram. OVERALL FINAL ASSESSMENT BI-RADS 1: NEGATIVE. RECOMMENDATION: Routine annual follow-up in 1 Year Additional Recommendation none A letter with findings and recommendations will be mailed to the patient. Reading Location: [place] [id number]
--- NOTE | 2025-05-13 16:23 | BD_ITS ---
PROCEDURE: DEXA BONE DENSITY STUDY 05/13/2025 REASON FOR EXAM: F, age 74 y/o . Postmenopausal. TECHNIQUE: Procedure Code: BDDBD Modality: DX Procedure: DEXA BONE DENSITY STUDY COMPARISON: June 01, 2021. FINDINGS: BMD and T-SCORES Lumbar spine: 0.838 g/cm2, T-score -1.9 Levels: L1 through L4 Change from prior: Loss of 5.6%. Left femoral neck: 0.628 g/cm2, T-score -2.0 Femoral neck comparison data not recommended for monitoring change. Left total hip: 0.779 g/cm2, T-score -1.3 Change from prior: Loss of 6.5%. The World Health Organization has defined the following categories based on bone density: Normal bone density: T-score equal to or greater than -1.0 Osteopenia: T-score between -1.0 and -2.5 Osteoporosis: T-score equal to or less than -2.5 FRAX (or Comparable) Fracture Risk Assessment: 10 Year Probability of Fracture: Major Osteoporotic Fracture: 29% Hip Fracture: 7.8% (Note: FRAX is not to be reported in setting of normal range bone density, osteoporosis on DEXA, known history of osteoporosis, prior osteoporotic hip or vertebral fracture, or for any patient undergoing pharmacological treatment for bone loss.) The National Osteoporosis Foundation (NOF) recommends pharmacological treatment for patients with a FRAX 10-year risk of 3% or higher for a hip fracture, or 20% or higher for a major osteoporotic fracture, to prevent osteoporosis and reduce fracture risk. The patient does meet the pharmacological treatment recommendations for prevention of osteoporosis. BD/Dexa Bone Density Study IMPRESSION: OSTEOPENIA. Recommend follow-up as clinically warranted. Reading Location: [place] [address]
== END | disposition home or self-care (01) ==
LOC: OPBD 16:19
PROVIDERS: PCP Family Medicine; Referring Provider Family Medicine; Visit Provider Family Medicine
DX: Z12.31 Encounter for screening mammogram for malignant neoplasm of breast (principal); Z78.0 Asymptomatic menopausal state
CPT/HCPCS: 77063; 77067; 77080